=== PATIENT | female | born 1985 | race Two or more races ===

== ENCOUNTER 2019-01-30 10:10 | Outpatient (CLI) | payer OTHER | END 2019-01-30 10:16 | disposition home or self-care (01) | LOC: SONOGRAMA 10:10 | DX: E04.1 Nontoxic single thyroid nodule (principal) ==

== ENCOUNTER → 2019-08-04 | Outpatient (CLI) | payer OTHER | END | disposition home or self-care (01) | LOC: PRENATAL 10:00 | DX: O35.3XX0 Maternal care for (suspected) damage to fetus from viral disease in mother, not applicable or unspecified (principal) ==

== ENCOUNTER → 2019-10-24 | Outpatient (CLI) | payer OTHER | END | disposition home or self-care (01) | LOC: PRENATAL 08:30 | DX: O26.843 Uterine size-date discrepancy, third trimester (principal); Z36.89 Encounter for other specified antenatal screening ==

== ENCOUNTER 2019-12-18 20:49 | Outpatient (CLI) | payer OTHER | END 2019-12-18 21:48 | disposition home or self-care (01) | LOC: NST 20:49 | PROVIDERS: ATTEND Obstetrics & Gynecology | DX: Z34.83 Encounter for supervision of other normal pregnancy, third trimester (principal) ==

== ENCOUNTER 2019-12-25 01:11 | Outpatient (CLI) | payer OTHER ==
[2019-12-25] MEDS ORDERED: PRENATAL TABLE1 EAC1 PO (01:23)
== END 2019-12-25 17:08 | disposition home or self-care (01) ==
LOC: OBS/DEL 01:11
PROVIDERS: ATTEND Obstetrics & Gynecology
DX: O47.1 False labor at or after 37 completed weeks of gestation (principal)

== ENCOUNTER 2019-12-26 17:07 | Inpatient (IN) | payer OTHER ==
[~2019-12-26] VITALS: Ht 160 cm; Wt 81.2 kg
[~2019-12-26 17:07] MED LIST: PRENATAL TABLE1 EAC1 PO
== END 2019-12-28 13:52 | disposition home or self-care (01) | DRG 807 ==
LOC: LDR 17:07 → OB/GYN 23:31
PROVIDERS: ADMIT Obstetrics & Gynecology; ATTEND Obstetrics & Gynecology
PROC: 10E0XZZ Delivery of Products of Conception, External Approach (ICD-10-PCS; principal; 2019-12-26)
PROC: 10907ZC Drainage of Amniotic Fluid, Therapeutic from Products of Conception, Via Natural or Artificial Opening (ICD-10-PCS; 2019-12-26)
PROC: 0W8NXZZ Division of Female Perineum, External Approach (ICD-10-PCS; 2019-12-26)
PROC: 3E033VJ Introduction of Other Hormone into Peripheral Vein, Percutaneous Approach (ICD-10-PCS; 2019-12-26)
PROC: 4A1HXCZ Monitoring of Products of Conception, Cardiac Rate, External Approach (ICD-10-PCS; 2019-12-26)
DX: O80 Encounter for full-term uncomplicated delivery (principal); Z37.0 Single live birth; Z3A.39 39 weeks gestation of pregnancy

== ENCOUNTER 2023-05-21 10:15 | Outpatient (CLI) | payer OTHER | END 2023-05-21 10:18 | disposition home or self-care (01) | LOC: PRENATAL 10:15 | PROVIDERS: ATTEND Obstetrics & Gynecology Maternal & Fetal Medicine | DX: O36.80X0 Pregnancy with inconclusive fetal viability, not applicable or unspecified (principal); Z36.82 Encounter for antenatal screening for nuchal translucency; O09.529 Supervision of elderly multigravida, unspecified trimester; Z36.9 Encounter for antenatal screening, unspecified; O34.10 Maternal care for benign tumor of corpus uteri, unspecified trimester; Z3A.12 12 weeks gestation of pregnancy ==

== ENCOUNTER 2023-07-13 13:06 | Outpatient (CLI) | payer OTHER | END 2023-07-13 13:08 | disposition home or self-care (01) | LOC: PRENATAL 13:06 | PROVIDERS: ATTEND Obstetrics & Gynecology Maternal & Fetal Medicine | DX: O35.3XX0 Maternal care for (suspected) damage to fetus from viral disease in mother, not applicable or unspecified (principal); O44.00 Complete placenta previa NOS or without hemorrhage, unspecified trimester; O09.529 Supervision of elderly multigravida, unspecified trimester; O34.10 Maternal care for benign tumor of corpus uteri, unspecified trimester; Z3A.20 20 weeks gestation of pregnancy ==

== ENCOUNTER 2023-09-07 11:58 | Outpatient (CLI) | payer OTHER | END 2023-09-07 11:59 | disposition home or self-care (01) | LOC: PRENATAL 11:58 | PROVIDERS: ATTEND Obstetrics & Gynecology Maternal & Fetal Medicine | DX: O26.849 Uterine size-date discrepancy, unspecified trimester (principal); O09.529 Supervision of elderly multigravida, unspecified trimester; Z3A.28 28 weeks gestation of pregnancy ==

== ENCOUNTER → 2023-10-01 08:55 | Outpatient (CLI) | payer OTHER | END | disposition home or self-care (01) | LOC: PRENATAL 08:55 | PROVIDERS: ATTEND Obstetrics & Gynecology Maternal & Fetal Medicine | DX: O36.8199 Decreased fetal movements, unspecified trimester, other fetus (principal); Z3A.31 31 weeks gestation of pregnancy ==